=== PATIENT | female | born 1940 | race Caucasian/White ===

== ENCOUNTER 2018-09-24 15:58 | Outpatient (CLI) | payer MEDICARE | END 2018-09-24 23:59 | disposition home or self-care (01) | LOC: RAD 15:58 | PROVIDERS: ATTEND Internal Medicine | DX: C18.7 Malignant neoplasm of sigmoid colon (principal) | CPT/HCPCS: 76000; J1642 ==

== ENCOUNTER 2018-09-26 11:53 | Day surgery (SDC) | payer MEDICARE ==
[~2018-09-26] VITALS: Ht 162.6 cm; Wt 68.7 kg
[2018-09-26 12:41] VITALS: BP 149/77
== END 2018-09-26 16:20 | disposition home or self-care (01) ==
LOC: OUT 11:53
PROVIDERS: ATTEND Internal Medicine
DX: T82.594A Other mechanical complication of infusion catheter, initial encounter (principal); C18.7 Malignant neoplasm of sigmoid colon; I10 Essential (primary) hypertension; E03.9 Hypothyroidism, unspecified; K21.9 Gastro-esophageal reflux disease without esophagitis; Y83.8 Other surgical procedures as the cause of abnormal reaction of the patient, or of later complication, without mention of misadventure at the time of the procedure; Y92.89 Other specified places as the place of occurrence of the external cause
CPT/HCPCS: 36561; 36590; 76937; 77001; 99156; 99157; C1788; J0690; J1642; J2250; J3010; J7030; J2310

== ENCOUNTER → 2019-04-26 | Outpatient (CLI) | payer MEDICARE ==
[~2019-04-26] MED LIST: LEVO88TA4 PO; RANI-467 PO
== END | disposition home or self-care (01) ==
LOC: ROC 08:25
PROVIDERS: ATTEND Radiology Radiation Oncology
DX: C18.9 Malignant neoplasm of colon, unspecified (principal); Z80.41 Family history of malignant neoplasm of ovary
CPT/HCPCS: G0463

== ENCOUNTER 2019-07-04 07:48 | Outpatient (CLI) | payer MEDICARE | END 2019-07-04 23:59 | disposition home or self-care (01) | LOC: ROC 07:48 | PROVIDERS: ATTEND Radiology Radiation Oncology | DX: Z08 Encounter for follow-up examination after completed treatment for malignant neoplasm (principal); Z85.038 Personal history of other malignant neoplasm of large intestine | CPT/HCPCS: G0463 ==

== ENCOUNTER 2019-10-07 08:59 | Day surgery (SDC) | payer MEDICARE ==
[~2019-10-07] VITALS: Ht 165.1 cm; Wt 75.0 kg
[2019-10-07] MEDS ORDERED: SODIUM CHLORIDE 0.9% 1,000 ML IV SCH (09:24)
[2019-10-07] MEDS ORDERED: PLEASE ENTER HEIGHT AND WEIGHT MC SCH (09:30)
[2019-10-07 09:42] VITALS: BP 145/86
[2019-10-07] MEDS ORDERED: NALOXONE 1 MG/ML, 2ML ONE (10:51)
[2019-10-07] MEDS ORDERED: FENTANYL PF 100 MCG/2ML ONE (10:51)
[2019-10-07] MEDS ORDERED: LIDOCAINE 1%, 20ML ONE (10:51)
[2019-10-07] MEDS ORDERED: MIDAZOLAM 1 MG/ML, 5ML ONE (10:51)
[2019-10-07] MEDS ORDERED: FLUMAZENIL 0.1 MG/1 ML, 5ML ONE (10:51)
== END 2019-10-07 12:30 | disposition home or self-care (01) ==
LOC: OUT 08:59
PROVIDERS: ATTEND Internal Medicine
DX: Z45.2 Encounter for adjustment and management of vascular access device (principal); C18.7 Malignant neoplasm of sigmoid colon
CPT/HCPCS: 36590; 99156; 99157; J2250; J3010; J7030; 77001; J2310

== ENCOUNTER 2019-12-19 08:03 | Outpatient (CLI) | payer MEDICARE | END 2019-12-19 23:59 | disposition home or self-care (01) | LOC: ROC 08:03 | PROVIDERS: ATTEND Radiology Radiation Oncology | DX: Z08 Encounter for follow-up examination after completed treatment for malignant neoplasm (principal); Z85.038 Personal history of other malignant neoplasm of large intestine | CPT/HCPCS: G2012 ==